=== PATIENT | female | born 1960 | race Caucasian/White ===

== ENCOUNTER 2019-10-19 11:43 | Emergency (ER) | payer MEDICARE, SELFPAY ==
[2019-10-19 11:50] VITALS: BP 187/90; PULSE 101; RESP 20; TEMP 37.2; O2SAT 97
[2019-10-19 12:00] VITALS: BP 181/86; PULSE 85; RESP 17; O2SAT 99
--- NOTE | 2019-10-19 12:12 | ED.SKABFB ---
HPI - Skin/Abscess/Foreign Bdy <DELANEY Wong-BC - Last Filed: 10/19/19 12:27> General Chief complaint: Skin/Abscess/Foreign Body Stated complaint: bump on head/ from prev injury/ weird sensations/ Time Seen by Provider: 10/19/19 11:45 Source: patient Mode of arrival: Ambulatory Limitations: no limitations History of Present Illness HPI narrative: The patient is a 58-year-old female injury who does not vaccinated who presents with a chief complaint of ?weird sensation on her head in addition to a ?red bumpy area.She states that this is on the side of her head above her right ear. She complains of generalized fatigue, denies any fevers nausea vomiting or diarrhea. She denies any chest pain or shortness of breath. She is concerned as she has had a head injury in 2006. She denies any visual deficits, but states that she feels tired and slightly woozy at times. She states that she has some red bumps in her scalp. She states that the area is very tingly, with some shooting electric pains. Related Data Home Medications Medication Instructions Recorded Confirmed sumatriptan succinate [Imitrex] 50 mg PRN #0 12/04/16 Previous Rx's Medication Instructions Recorded prednisone 50 mg PO DAILY #5 tab 10/19/19 valacyclovir 1,000 mg PO TID 7 Days #21 tab 10/19/19 Review of Systems <DELANEY Wong-BC - Last Filed: 10/19/19 12:27> Review of Systems Narrative: GENERAL: Denies chills, fatigue, malaise, fever, sweats. HEENT: Denies sinus pain, ear pain, sore throat, difficulty swallowing, dizziness. RESPIRATORY: Denies dyspnea, cough, wheezing, hemoptysis, sputum. CARDIOVASCULAR: Denies chest pain, palpitations, orthopnea, edema, GASTROINTESTINAL: Denies nausea, vomiting, abdominal pain, diarrhea, constipation, melena. : Denies dysuria, frequency, incontinence, hematuria, urinary retention. MUSCULOSKELETAL: denies weakness, joint pain, or bony pain Skin: See HPI NEUROLOGIC: Denies weakness, headache, numbness, change in speech, confusion, seizures, incoordination. PSYCHIATRIC: No concerning psychosocial issues. 12 point review of systems is negative except for those stated above Patient History <MICAELA Wong - Last Filed: 10/19/19 12:27> Medical History (Updated 10/19/19 @ 12:24 by MICAELA Wong) History of head injury (Acute) Family History Grandmother Cancer Sister Hypertension Hyperlipidemia Social History Smoking Status: Current every day smoker tobacco type: cigarettes alcohol intake frequency: a few times a month Substance Use Type: does not use Exam <MICAELA Wong - Last Filed: 10/19/19 12:27> Narrative Exam Narrative: GENERAL: This is a well-nourished, well-developed patient, in no acute distress HEAD: Atraumatic. Normocephalic. No temporal or scalp tenderness. EYES: Pupils equal round and reactive. Extraocular motions intact. No scleral icterus. No injection or drainage. ENT: Nose without bleeding, purulent drainage or septal hematoma. Throat without erythema, tonsillar hypertrophy or exudate. Uvula midline. Airway patent. NECK: Trachea midline. No JVD or lymphadenopathy. Supple, nontender, no meningeal signs. CARDIOVASCULAR: Regular rate and rhythm RESPIRATORY: No cough. No increased respiratory effort. No accessory muscle use. EXTREMITIES: No clubbing, cyanosis, or edema. No joint tenderness, effusion, or edema noted. BACK: Nontender without deformity or crepitance. No flank tenderness. NEURO: AOx3. SKIN: Approximately 4 x 6 cm area of vesicular crusting lesions superior to her right ear. Slightly erythematous. No drainage. entirely within here, no rash or lesions near eye Initial Vital Signs Initial Vital Signs: Vital Signs Temperature 99.0 F 10/19/19 11:50 Pulse Rate 101 H 10/19/19 11:50 Respiratory Rate 20 10/19/19 11:50 Blood Pressure 187/90 H 10/19/19 11:50 Pulse Oximetry 97 10/19/19 11:50 <Costa Fgiueroa DO - Last Filed: 10/19/19 13:01> Initial Vital Signs Initial Vital Signs: Vital Signs Temperature 99.0 F 10/19/19 11:50 Pulse Rate 101 H 10/19/19 11:50 Respiratory Rate 20 10/19/19 11:50 Blood Pressure 187/90 H 10/19/19 11:50 Pulse Oximetry 97 10/19/19 11:50 Course <DELANEY Wong-BC - Last Filed: 10/19/19 12:27> Vital Signs Vital signs: Vital Signs - 8 hr 10/19/19 11:50 10/19/19 12:00 10/19/19 12:25 Temperature 99.0 F Pulse Rate 101 H 85 85 Respiratory Rate 20 17 18 Blood Pressure 187/90 H 181/86 H Blood Pressure [Right Arm] 181/86 H Pulse Oximetry 97 99 96 <Costa Figueroa DO - Last Filed: 10/19/19 13:01> Vital Signs Vital signs: Vital Signs - 8 hr 10/19/19 11:50 10/19/19 12:00 10/19/19 12:25 Temperature 99.0 F Pulse Rate 101 H 85 85 Respiratory Rate 20 17 18 Blood Pressure 187/90 H 181/86 H Blood Pressure [Right Arm] 181/86 H Pulse Oximetry 97 99 96 MDM - Skin/Abscess/Foreign Bdy <DELANEY Wong-BC - Last Filed: 10/19/19 12:27> MDM Narrative Medical decision making narrative: The patient is a 58-year-old female who presents with a chief complaint of bumps and ?weird sensations above her right ear. The patient's exam indicates shingles. This correlates as she has had chickenpox, is unvaccinated. She was started on valacyclovir, and placed her on a burst of prednisone. She states she is comfortable with both these medications. She has no evidence of lesions your her eye, no rash around her eye and no ocular complaints. I discussed at length that this occurs she needs to follow up promptly. Encouraged follow-up with primary care provider in the next few days well as coming back the emergency department for any acute concerns such as chest pain shortness of breath etc. Discharge Plan Departure Patient Disposition: Home Clinical Impression: Shingles Qualifiers: Herpes zoster complications: without complications Qualified Code(s): B02.9 - Zoster without complications Discharge Date/Time: 10/19/19 12:25 Instructions: Shingles (Herpes Zoster) (Alternative Therapy), DI for Shingles Activity Restrictions/Additional Instructions: Your pain appears to be from shingles. I have sent prescriptions of valacyclovir, antivirals and prednisone to [facility]. I encouraged rest, vxoh-ehu-yewbxhc medications as needed and able. Please remember that this is very contagious, especially for those have not been vaccinated, or immunocompromised Please follow up with primary care provider. Please come back To the emergency department for any acute concerns. Please remember to be evaluated immediately if you are developed rash near your eye Prescriptions: New valacyclovir 1 gram tablet 1,000 mg PO TID 7 Days Qty: 21 RF: 0 prednisone 50 mg tablet 50 mg PO DAILY Qty: 5 RF: 0 No Action sumatriptan succinate [Imitrex] 50 MG tablet 50 mg PRNQty: 0 RF: 0 Referrals: Sarai Altman DO [Primary Care Provider] - <Costa Figueroa DO - Last Filed: 10/19/19 13:01> Sign Out Provider Sign Out Attestation: Dr Figueroa Co-Sign Statement: I was available for consultation during this patient's emergency department visit. This chart is signed by myself for administrative purposes only. I did not have direct contact with this patient during this visit. They were seen independently by the APC.
[2019-10-19 12:25] VITALS: BP 181/86; PULSE 85; RESP 18; O2SAT 96
== END 2019-10-19 12:25 | disposition home or self-care (01) ==
PROVIDERS: Emergency Provider Nurse Practitioner Family; Family Provider Family Medicine; PCP Family Medicine
DX: B02.9 Zoster without complications (principal)
CPT/HCPCS: 99282; 99283

== ENCOUNTER 2020-03-04 00:32 | Emergency (ER) | payer OTHER, SELFPAY ==
[2020-03-04 00:35] VITALS: BP 174/77; PULSE 98; RESP 20; TEMP 36.4; O2SAT 98; BMI 35.2
--- NOTE | 2020-03-04 00:45 | ED_ITS ---
HPI - General Adult General Chief complaint: Fall Stated complaint: FELL DOWN STAIRS Time Seen by Provider: 03/04/20 00:37 History of Present Illness HPI narrative: 59-year-old woman with a history of traumatic brain injury, migraine headaches and alcohol use presents after falling down some stairs this evening. Apparently she and her friend/caregiver were outside watching the [place] and stars align. At some point she stumbled over 3 stairs and landed on her left elbow. She has a minor abrasion on her right elbow. She thinks that she passed out however her caregiver states that she clearly did not lose consciousness and did not hit her head. Related Data Previous Rx's Medication Instructions Recorded prednisone 50 mg PO DAILY #5 tab 10/19/19 adjuvant AS01B (PF)vial 1 of 2 0.5 ml IM ONCE #0.5 ml 01/08/20 Allergies Allergy/AdvReac Type Severity Reaction Status Date / Time No Known Drug Allergies Allergy Verified 03/04/20 00:40 Review of Systems Review of Systems Narrative: Patient is intoxicated so review of systems is limited however she states that she has stopped taking any of her migraine medication and complains only of left elbow pain Patient History Medical History (Updated 03/04/20 @ 01:22 by Emi Molina MD) History of head injury (Acute) Migraine (Acute) Family History Grandmother Cancer Sister Hypertension Hyperlipidemia Social History Smoking Status: Current every day smoker Smoking Status: Current every day smoker tobacco type: cigarettes alcohol intake frequency: a few times a month Substance Use Type: does not use Exam Narrative Exam Narrative: General: Healthy appearing, mildly slurred speech and slightly intoxicated with perseverating questions and vociferous complaints about her left elbow HEENT: Moist mucous membranes, normal sclera with reactive pupils, no abrasions or contusions to the face forehead scalp Neck: supple, no occipital insertion tenderness no midline tenderness to palpation Respiratory: Lungs are clear to auscultation, no wheezing no rales no rhonchi. Full and symmetrical air movement Cardiac: Regular rate and rhythm no murmurs no bruits Abdomen: Soft nontender good bowel tones, no flank pain Skin: Warm and dry, no rashes Neurologic: Slightly some slurred speech consistent with mild intoxication, left upper extremity is neurovascularly intact, no focal neurologic abnormali ties Extremities: well perfused, right elbow with minor abrasion. Left the elbow with contusion were significant abrasion but no sutures needed and full range of motion at the elbow Psych: Cooperative, traumatic affective behavior Initial Vital Signs Initial Vital Signs: Vital Signs Temperature 97.6 F 03/04/20 00:35 Pulse Rate 98 H 03/04/20 00:35 Respiratory Rate 20 03/04/20 00:35 Blood Pressure 174/77 H 03/04/20 00:35 Pulse Oximetry 98 03/04/20 00:35 Course Orders Ordered: ED Orders 03/04/20 00:45 XR elbow LT min 3V Stat Discontinued Medications Ibuprofen (Advil) 400 mg PO NOW ONE Stop: 03/04/20 00:46 Last Admin: 03/04/20 00:51 Dose: 400 mg Documented by: MANOLO Oxycodone/Acetaminophen (Endocet 5/325 Prepack) 1 bottle MISC SEEINSTR ONE Stop: 03/04/20 00:46 Last Admin: 03/04/20 00:54 Dose: Not Given Documented by: MANOLO Oxycodone/Acetaminophen (Percocet 5/325) 1 tab PO NOW ONE Stop: 03/04/20 00:53 Last Admin: 03/04/20 00:54 Dose: 1 tab Documented by: MANOLO Vital Signs Vital signs: Vital Signs - 8 hr 03/04/20 00:35 03/04/20 00:55 03/04/20 01:19 Temperature 97.6 F Pulse Rate 98 H 98 H 85 Respiratory Rate 20 16 16 Blood Pressure 174/77 H Blood Pressure [Right Arm] 160/64 H 158/80 H Pulse Oximetry 98 99 98 Medical Decision Making Medical Records Medical records reviewed: Yes I reviewed the patient's medical records. Imaging Data Left Elbow xray: Attestation: I personally reviewed and interpreted this imaging study as follows: My Impression: No fracture, small effusion over the olecranon MDM Narrative Medical decision making narrative: Mechanical fall compounded by mild alcohol intoxication with contusion to the left elbow no fractures Discharge Plan Departure Patient Disposition: Home Clinical Impression: Fall Qualifiers: Encounter type: initial encounter Qualified Code(s): W19.XXXA - Unspecified fall, initial encounter Contusion of elbow Qualifiers: Encounter type: initial encounter Laterality: left Qualified Code(s): S50.02XA - Contusion of left elbow, initial encounter Abrasion of elbow Qualifiers: Encounter type: initial encounter Laterality: left Qualified Code(s): S50.312A - Abrasion of left elbow, initial encounter Alcohol intoxication Qualifiers: Complication of substance-induced condition: uncomplicated Qualified Code(s): F10.920 - Alcohol use, unspecified with intoxication, uncomplicated Instructions: DI for Elbow Pain Activity Restrictions/Additional Instructions: Thank you for coming in this evening I am sorry that your stumble interrupted your star gazing this evening. Fortunately you did not break your elbow. The abrasion over the elbow should heal nicely. As with any fall, you will hurt more tomorrow than you do now. Making sure that you are staying active actually helps and using 400 mg of ibuprofen (2 bnar-bqu-[id number] pills) and 1 Tylenol every 6 hours can be very helpful in controlling pain. I wish you the best Prescriptions: No Action Shingrix Adjuvant Component-PF Suspension 0.5 ml IM ONCE Qty: 0.5 RF: 0 prednisone 50 mg tablet 50 mg PO DAILY Qty: 5 RF: 0
--- NOTE | 2020-03-04 00:45 | DI.RAD.S_ITS ---
PROCEDURE: XR ELBOW LT MIN 3V INDICATIONS: fall TECHNIQUE: 3 views of the elbow were acquired. COMPARISON: None. FINDINGS: Bones: No fractures or dislocations. No suspicious bony lesions. Soft tissues: No elbow joint effusion. No suspicious soft tissue calcifications. IMPRESSION: No trauma found. Dictated by: Wallace Meyers M.D. on 03/04/2020 at 8:06 Approved by: Wallace Meyers M.D. on 03/04/2020 at 8:07
[2020-03-04] MEDS: IBUPROFEN 400 MG TABLET PO (00:51)
[2020-03-04] MEDS: OXYCODONE/ACETAMINOPHEN 5/325 TABLET 1 TAB PO (00:54)
[2020-03-04 00:55] VITALS: BP 160/64; PULSE 98; RESP 16; O2SAT 99
--- NOTE | 2020-03-04 00:59 | PC.NURSE ---
Upon arrival,pt able to get self out of car & into without assistance.Gait steady from wc to stretcher. Pt denies head,neck or back pain.No point tenderness to cervical vertebtrae.SO states pt did not lose consciousness at any time before or after fall. CMS good to all extremities, though c/o increase pain to left forearm with flexion/extension of arm..Nailbeds pink with brisk cap refill. ETOH noted on pt's breath,pt admits to having 1 1/2 drinks tonight prior to the fall. Pt is stable,no acute distress.No tenderness,abrasions,bruise, swelling,discoloration noted to scalp/head.Pt does have swelling to mid left forearm which she states has had a sebaceous cyst there for quite some time. Admits this is tender to palpation.No other complaints voiced at time of admission.
[2020-03-04 01:19] VITALS: BP 158/80; PULSE 85; RESP 16; O2SAT 98
== END 2020-03-04 01:27 | disposition home or self-care (01) ==
PROVIDERS: Emergency Provider Emergency Medicine
DX: S50.02XA Contusion of left elbow, initial encounter (principal); S50.312A Abrasion of left elbow, initial encounter; F10.920 Alcohol use, unspecified with intoxication, uncomplicated; W10.9XXA Fall (on) (from) unspecified stairs and steps, initial encounter
CPT/HCPCS: 73080; 99283; 99284

== ENCOUNTER 2021-06-20 18:57 | Emergency (ER) | payer OTHER, SELFPAY ==
[2021-06-20 19:05] VITALS: BP 145/81; PULSE 88; RESP 22; TEMP 36.7; O2SAT 97
--- NOTE | 2021-06-20 19:10 | DI.RAD.S_ITS ---
PROCEDURE: XR FOREARM LT 2V INDICATIONS: fall, lt forearm swelling TECHNIQUE: 2 views of the forearm were acquired. COMPARISON: None. FINDINGS: Bones: No fractures or dislocations. No suspicious bony lesions. Soft tissues: No suspicious soft tissue calcifications or masses. Focal soft tissue swelling noted in the anterior aspect of midforearm. IMPRESSION: No fracture. No osseous lesion. If symptoms and/or clinical suspicion for pathology persists, further assessment with repeat radiographs (7-10 days) or advanced imaging (e.g. CT, MRI or bone scan) should be considered. Dictated by: Kassy Allison MD, PhD on 06/20/2021 at 19:33 Approved by: Kassy Allison MD, PhD on 06/20/2021 at 19:34
--- NOTE | 2021-06-20 20:52 | ED.GENADULT ---
HPI - General Adult General Chief complaint: Extremity Injury, Upper Stated complaint: fell and hit arm/lump forming Time Seen by Provider: 06/20/21 20:35 Source: patient Mode of arrival: Wheelchair History of Present Illness HPI narrative: Patient is a 60-year-old female here for evaluation of injuries to her left arm that she sustained after she tripped and fell earlier today. Initially was reported that she was having swelling to her left arm however the patient states that the swelling that is there is actually a cyst that she has known about for several years. She does have some abrasions over the back of her left wrist. There were no other injuries reported from the event. Related Data Previous Rx's Medication Instructions Recorded prednisone 50 mg tablet 50 mg PO DAILY #5 tab 10/19/19 adjuvant AS01B (PF)vial 1 of 2 0.5 ml IM ONCE #0.5 ml 01/08/20 (Shingrix Adjuvant Component-PF) Allergies Allergy/AdvReac Type Severity Reaction Status Date / Time No Known Drug Allergies Allergy Verified 03/04/20 00:40 Review of Systems Musculoskeletal Musculoskeletal: Reports as per HPI Integumentary/Breasts Skin/Breast: Reports as per HPI Neurologic Neurologic: Reports system reviewed and no additional complaints, except as documented Hematologic/Lymphatic On Anticoagulants: No Patient History Medical History History of head injury Migraine Family History Grandmother Cancer Sister Hypertension Hyperlipidemia Social History Smoking Status: Current every day smoker Smoking Status: Current every day smoker tobacco type: cigarettes alcohol intake frequency: a few times a month Alcohol type: beer Substance Use Type: does not use Exam Initial Vital Signs Initial Vital Signs: Vital Signs Temperature 98.1 F 06/20/21 19:05 Pulse Rate 88 06/20/21 19:05 Respiratory Rate 22 06/20/21 19:05 Blood Pressure 145/81 H 06/20/21 19:05 Pulse Oximetry 97 06/20/21 19:05 HENMT Head: normal to inspection and normocephalic Cardio Pulses: radial pulses present on the left Skin Other: Superficial abrasion on the dorsum left wrist. No active bleeding. Neuro General: patient alert, patient awake and moves all extremities Extrem Other: Left shoulder left elbow left wrist unremarkable. Patient does have a soft swelling on the radial aspect of the distal 3rd of her left forearm. She states that this is the cyst that she has known about. Psych Appearance: grossly normal and well kempt Course Orders Ordered: ED Orders 06/20/21 19:10 XR forearm LT 2V Stat Vital Signs Vital signs: Vital Signs - 8 hr 06/20/21 20:59 Pulse Rate 80 Respiratory Rate 16 Blood Pressure 139/66 Pulse Oximetry 97 Medical Decision Making Imaging Data Extremity x-ray #1: Radiologist's Impression: [address] [id number] ReportSigned Patient: Milly Thomas MMR#: [id number]: 9Acct:[id number]/Sex: 60 / FDate of Service: 06/20/21Loc: EDAccession Number: [id number] Procedure: XR forearm LT 2V Ordering Provider: Costa Figueroa D.O. PROCEDURE: XR FOREARM LT 2V INDICATIONS: fall, lt forearm swelling TECHNIQUE: 2 views of the forearm were acquired. COMPARISON: None. FINDINGS: Bones: No fractures or dislocations. No suspicious bony lesions. Soft tissues: No suspicious soft tissue calcifications or masses. Focal soft tissue swelling noted in the anterior aspect of midforearm. IMPRESSION: No fracture. No osseous lesion. If symptoms and/or clinical suspicion for pathology persists, further assessment with repeat radiographs (7-10 days) or advanced imaging (e.g. CT, MRI or bone scan) should be considered. Dictated by: Kassy Allison MD, PhD on 06/20/2021 at 19:33 Approved by: Kassy Allison MD, PhD on 06/20/2021 at 19:34 [facility] Narrative Medical decision making narrative: Patient is obviously intoxicated. The fall happened earlier today. The paramedics did have to come out and pick her up. She is here with a friend. Apparently the swelling that they were concerned about on the left wrist is a cyst that the patient has known about for several years now. The x-ray shows no signs of fracture. The abrasion needs no intervention. There are no other injuries found on the exam nor reported from the patient. We will hold on further workup for now. She is given return precautions and follow-up instructions. She expressed understanding and agreement. Discharge Plan Departure Patient Disposition: Home Clinical Impression: Arm pain, left Activity Restrictions/Additional Instructions: There were no fractures noted on the x-rays. Do recommend that you ice the area and please return to the emergency department for any new or worsening symptoms Prescriptions: No Action Shingrix Adjuvant Component-PF Suspension 0.5 ml IM ONCE Qty: 0.5 RF: 0 prednisone 50 mg tablet 50 mg PO DAILY Qty: 5 RF: 0 Referrals: Elva Quezada ARNP [Primary Care Provider] -
[2021-06-20 20:59] VITALS: BP 139/66; PULSE 80; RESP 16; O2SAT 97
== END 2021-06-20 21:00 | disposition home or self-care (01) ==
PROVIDERS: Emergency Provider Emergency Medicine; PCP Nurse Practitioner Family
DX: M79.602 Pain in left arm (principal); W19.XXXA Unspecified fall, initial encounter
CPT/HCPCS: 73090; 99283

== ENCOUNTER → 2022-01-08 10:03 | Outpatient (CLI) | payer OTHER, SELFPAY ==
[2022-01-08 10:59] LABS: COVID19 -Nasal RAPID Negative (Negative)
== END ==
PROVIDERS: PCP Internal Medicine; Visit Provider Surgery
DX: Z20.822 Contact with and (suspected) exposure to COVID-19 (principal)
CPT/HCPCS: 87635; C9803

== ENCOUNTER 2022-01-09 09:39 | Day surgery (SDC) | payer OTHER, SELFPAY ==
[2022-01-09 09:53] VITALS: BMI 30.8
[2022-01-09 10:07] VITALS: BP 150/71; PULSE 96; RESP 18; TEMP 36.7; O2SAT 99
--- NOTE | 2022-01-09 12:44 | SUR.PREOP ---
Pt surgery cancelled due to Humidifier problem in the O.R.
== END 2022-01-09 09:40 | disposition home or self-care (01) ==
LOC: OR 09:40
PROVIDERS: Referring Provider Surgery; Visit Provider Surgery
DX: D17.22 Benign lipomatous neoplasm of skin and subcutaneous tissue of left arm (principal); Z53.09 Procedure and treatment not carried out because of other contraindication
CPT/HCPCS: 17000; J2250; J2405; J2704; J3010

== ENCOUNTER → 2022-01-11 14:20 | Outpatient (CLI) | payer OTHER, SELFPAY ==
[2022-01-11 15:06] LABS: COVID19 -Nasal RAPID Negative (Negative)
== END ==
PROVIDERS: PCP Internal Medicine; Visit Provider Surgery
DX: Z01.812 Encounter for preprocedural laboratory examination (principal); Z20.822 Contact with and (suspected) exposure to COVID-19
CPT/HCPCS: 87635; C9803

== ENCOUNTER 2022-01-12 13:31 | Day surgery (SDC) | payer OTHER, SELFPAY ==
[2022-01-10 10:07] VITALS: BMI 32.8
--- NOTE | 2022-01-12 | PATH_ITS ---
[facility] Accession Number: [id number] . 01 Material submitted: . arm - LEFT ARM LIPOMA . 01 Diagnosis: Soft Tissue, Left Arm, Excision: Lipoma. [facility] 01/16/2022 1613 Local . 01 Electronically signed: . Ryann Morris MD, Pathologist NPI- [id number] . 01 Gross description: . Received in formalin, labeled with the patient's name and additionally labeled lipoma left arm, is a circular portion of yellow lobulated adipose tissue measuring 6.0 x 5.5 x 2.1 cm. The unoriented specimen is entirely inked blue. The specimen is sectioned revealing yellow lobulated cut surfaces with no discrete lesions, fibrous bands or areas of necrosis identified. Senior [employer] Engineer sections are submitted in cassettes A1 and A2. ([id number]) /MRV 01/15/2022 1346 Local . 01 Pathologist provided ICD-10: D17.22 . 01 CPT . 886449 Specimen Comment: A courtesy copy of this report has been sent to [phone] Performed at: [address] [facility] [address] [place] [address] [id number] MD Oren Perez MD Phone: [phone]
[2022-01-12 14:41] VITALS: BP 139/75; PULSE 93; RESP 16; TEMP 36.8; O2SAT 97; BMI 32.8
--- NOTE | 2022-01-12 16:48 | PM.HP.1 ---
History of Present Illness History of Present Illness Date Patient Seen: 01/12/22 Time Patient Seen: 16:48 Chief complaint: SDC Narrative: 61-year-old woman with a left arm soft tissue mass most likely lipoma. It has been there for few years but it is getting larger. It is starting to bother her. Patient History Medical History (Updated 01/11/22 @ 14:48 by JOSE MARIA Gayle) History of head injury (2006) Lipoma Migraine Family & Social History Family History Grandmother Cancer Sister Hypertension Hyperlipidemia Social History: household members friend(s) Tobacco & Substance use: Tobacco type cigarettes Smoking Status Current every day smoker alcohol intake current alcohol intake frequency a few times a month Substance Use Type does not use Meds Home Medications and Allergies Home Medications Medication Instructions Recorded Confirmed Type adjuvant AS01B (PF)vial 1 of 2 0.5 ml IM ONCE #0.5 ml 01/08/20 01/11/22 Rx (Shingrix Adjuvant Component-PF) miscellaneous medical supply #1 ea 01/11/22 01/11/22 Rx Allergies Allergy/AdvReac Type Severity Reaction Status Date / Time No Known Drug Allergies Allergy Verified 01/11/22 13:34 Exam Vital Signs (past 8 hours): - 01/12/22 14:41 Temperature 98.2 F Pulse Rate 93 H Respiratory Rate 16 Blood Pressure 139/75 Pulse Oximetry 97 Oxygen Delivery Method Room Air Narrative Exam Narrative: 8 x 6 cm soft mobile mass over the left radius most likely a lipoma. Assessment & Plan Assessment and plan (1) Neoplasm of unspecified behavior of bone, soft tissue, and skin: Status: Acute Plan Plan to proceed with excisional biopsy of left arm soft tissue mass. She understands the risks including nerve injury and she would like to proceed. COVID-19 COVID-19 status: Negative Result date/Date tested (Pos, Neg/Pending): 01/11/22 Time Spent With Patient Critical Care time: I spent a total of [] minutes of critical care time on this patient's care today; this time is exclusive of procedural time.
--- NOTE | 2022-01-12 17:42 | SUR.OPER ---
Supine on padded OR bed, head on pillow, arms secured on padded arm boards at <90 degrees abduction, legs uncrossed, safety belt at thigh, tape over blanket over lower legs.
[2022-01-12] MEDS: EPINEPHrine 1 MG/ML 0.2 MG INJ (18:02)
[2022-01-12] MEDS: LACTATED RINGERS 1,000 ML 42 ML IV (18:03)
[2022-01-12 18:21] VITALS: BP 127/58; PULSE 97; RESP 24; TEMP 36; O2SAT 98
--- NOTE | 2022-01-12 18:25 | SUR.PHASEI ---
Patient received from OR in stable condition with OR nurse and anesthesia at bedside. Awake but drowsy; denies any pain; dressing to right forearm clean, dry and intact. Denies numbness or tingling; capillary refill less than three seconds.
[2022-01-12 18:26] VITALS: BP 125/69; PULSE 94; RESP 25; O2SAT 98
--- NOTE | 2022-01-12 18:30 | PM.OP.1 ---
Operative Date/Time/Diagnoses Date of procedure: 01/12/22 Time of procedure: 18:30 Pre-op diagnosis: Left arm lipoma Post-op diagnosis: same Procedure & Clinicians Procedure: Excisional biopsy of left arm lipoma Same procedure as scheduled: Yes Indications: Left arm lipoma Surgeon: Jaison Chavarria Anesthesia Type: General Operative Notes Estimated Blood Loss (mL): 10 Procedure in detail: The patient was brought to the operating room and placed on the table in the supine position.? No antibiotics were indicated.? General anesthesia was induced with LMA.? The left arm was placed on an arm board and prepped and draped in the usual fashion.? A 7 cm incision was made over the mass in a longitudinal direction.? We divided down through a thin layer of subcutaneous adipose tissue to expose the mass.? There were 2 thin peripheral nerves running along the lipoma which were carefully dissected free and left intact.? There were 2 veins that were rather invested in the lipoma which were tied off and divided.? There was a well defined plane along the deep aspect of the lipoma which extended down to the fascia.? The edge of the radius was visible a few layers below the mass.? The deeper compartment was not entered.? Few bleeders were cauterized.? The wound was then closed in layers using interrupted 3-0 Vicryl dermal sutures followed by running 4-0 Monocryl subcuticular stitch.? Steri-Strips were applied followed by 4x4s and an Sen wrap.? The patient was awakened.? She had full motor function at the conclusion of the case. EBL 10 mL Post-operative Condition: stable Disposition: PACU
[2022-01-12 18:31] VITALS: BP 116/55; PULSE 93; RESP 16; O2SAT 97
--- NOTE | 2022-01-12 18:32 | PM.OP.1 ---
Operative Date/Time/Diagnoses Date of procedure: 01/12/22 Time of procedure: 18:33 Procedure & Clinicians Procedure: Excisional biopsy left arm lipoma Same procedure as scheduled: Yes Surgeon: Jaison Chavarria Operative Notes Procedure in detail: The patient was brought to the operating room and placed on the table in the supine position.? No antibiotics were indicated.? General anesthesia was induced with LMA.? The left arm was placed on an arm board and prepped and draped in the usual fashion.? A 7 cm incision was made over the mass in a longitudinal direction.? We divided down through a thin layer of subcutaneous adipose tissue to expose the mass.? There were 2 thin peripheral nerves running along the lipoma which were carefully dissected free and left intact.? There were 2 veins that were rather invested in the lipoma which were tied off and divided.? There was a well defined plane along the deep aspect of the lipoma which extended down to the fascia.? The edge of the radius was visible a few layers below the mass.? The deeper compartment was not entered.? Few bleeders were cauterized.? The wound was then closed in layers using interrupted 3-0 Vicryl dermal sutures followed by running 4-0 Monocryl subcuticular stitch.? Steri-Strips were applied followed by 4x4s and an Sen wrap.? The patient was awakened.? She had full motor function at the conclusion of the case. EBL 10 mL Post-operative Condition: stable Disposition: PACU
[2022-01-12 18:36] VITALS: BP 138/63; PULSE 85; RESP 16; TEMP 36.7; O2SAT 98
== END 2022-01-12 18:55 | disposition home or self-care (01) ==
PROVIDERS: PCP Internal Medicine; Referring Provider Surgery; Visit Provider Surgery
PROC: (CPT 25071; principal; 2022-01-12 14:45)
DX: D17.22 Benign lipomatous neoplasm of skin and subcutaneous tissue of left arm (principal)
CPT/HCPCS: 25071; J0171

== ENCOUNTER 2024-12-18 15:25 | Emergency (ER) | payer OTHER, SELFPAY ==
[2024-12-18 15:32] VITALS: BP 166/76; PULSE 78; RESP 16; TEMP 36.2; O2SAT 97; BMI 22.1
--- NOTE | 2024-12-18 16:20 | ED_ITS ---
<Statement entered by Danilo Burk, - 12/19/24 07:08> Dr. Burk: I was immediately available in the department for consultation. I did not actually see the patient. HPI - Nausea/Vomiting/Diarrhea General Chief complaint: Nausea/Vomiting/Diarrhea Stated complaint: WIC; Diarrhea t-5, Weakness, Can't Walk Alone Time Seen by Provider: 12/18/24 16:20 History of Present Illness HPI Narrative: Ms. Thomas is a pleasant 64-year-old female with a past medical history of cholecystectomy, daily smoker presents to the emergency department for diarrhea and generalized weakness x5 days. Patient reports she was having frequent loose stool 5 days ago however since then she has had improvement with 1 normal brown solid stool today. However she has been eating and drinking less and feels very dehydrated and weak because of the diarrhea. She attempted to go to the walk-in clinic but because she was having difficulty walking on her own she was directed to the emergency department. At this time she denies any pain including chest pain, abdominal pain, nausea, vomiting, headache, dizziness, confusion, lightheadedness, dysuria, hematuria, cough, shortness of breath, dyspnea on exertion. She has taken no medications prior to arrival. She lives with 2 friends at home. Related Data Previous Rx's Medication Instructions Recorded nitrofurantoin macrocrystal 100 mg 100 mg PO BID 5 days #10 caps 12/18/24 capsule Allergies Allergy/AdvReac Type Severity Reaction Status Date / Time No Known Drug Allergies Allergy Verified 02/26/22 16:32 Review of Systems Review of Systems ROS Unobtainable: All systems reviewed & are unremarkable except as noted in HPI and below Patient History Medical History Smoker unmotivated to quit Closed head injury (~2006) Chronic intermittent post-traumatic headache Chronic migraine Lipoma Migraine Surgical History H/O breast biopsy Family History Grandmother Cancer Sister Hypertension Hyperlipidemia Social History household members: friend(s) Smoking Status: Current every day smoker alcohol intake: current Smoking Status: Current every day smoker tobacco type: cigarettes alcohol intake frequency: a few times a month Alcohol type: beer Exam Narrative Exam Narrative: GENERAL: 64 year old patient appears stated age. Frail elderly patient, in no acute distress. HEAD: Atraumatic. Normocephalic. EYES: Extraocular motions intact. No scleral icterus. No injection or drainage. NECK: Trachea midline. Cervical ROM intact. CARDIOVASCULAR: Regular rate and rhythm. RESPIRATORY: ?Nonlabored respirations. ?Speaking in clear, full sentences. ?Clear to auscultation. Breath sounds equal bilaterally. No wheezes, rales, or rhonchi. ? GASTROINTESTINAL: Abdomen soft, non-tender, nondistended. EXTREMITIES: No edema or joint tenderness. BACK: No flank tenderness. NEURO: AOx3. ?Clear speech. ?Moves all 4 extremities appropriately. Slow to sit/stand independently. SKIN: No rash or erythema of visible areas Initial Vital Signs Initial Vital Signs: Vital Signs Temperature 97.1 F L 12/18/24 15:32 Pulse Rate 78 12/18/24 15:32 Respiratory Rate 16 12/18/24 15:32 Blood Pressure 166/76 H 12/18/24 15:32 Pulse Oximetry 97 12/18/24 15:32 Oxygen Delivery Method Room Air 12/18/24 15:32 Course Orders Ordered: ED Orders 12/18/24 15:40 EKG-12 Lead Stat 12/18/24 16:00 Complete Blood Count AUTO DIFF Stat Comprehensive Metabolic Panel Stat Lipase Stat 12/18/24 16:28 XR chest 1V Stat 12/18/24 17:05 Covid-19 + FLU A/B + RSV - PCR Stat 12/18/24 18:00 Urinalysis and Microscopic Stat Urine Culture Stat Discontinued Medications Sodium Chloride (Normal Saline 0.9%) 1,000 mls @ 1,000 mls/hr IV BOLUS ONE Stop: 12/18/24 17:27 Last Infusion: 12/18/24 18:11 Dose: Infused Documented By: Admin: 12/18/24 17:01 Dose: 1,000 mls/hr Documented By: PAULA Ondansetron HCl (Ondansetron 4 Mg/2 Ml Inj) 4 mg IV NOW PRN PRN Reason: Nausea And Vomiting Ondansetron HCl (Ondansetron 4 Mg Odt) 4 mg PO NOW PRN PRN Reason: Nausea And Vomiting Vital Signs Vital signs: Vital Signs - 8 hr 12/18/24 15:32 12/18/24 19:42 Temperature 97.1 F L 97.9 F Pulse Rate 78 79 Respiratory Rate 16 16 Blood Pressure 166/76 H 129/75 Pulse Oximetry 97 98 Oxygen Delivery Method Room Air Room Air MDM - Nausea/Vomiting/Diarrhea Medical Records Attestation: I reviewed the patient's medical records. Lab Data 12/18/24 16:00 12/18/24 16:00 Labs: Lab Results 12/18/24 12/18/24 12/18/24 Range/Units 16:00 17:05 18:00 WBC 5.3 (4.5-11.0) X10^3/uL RBC 5.25 H (4.0-5.2) X10^6/uL Hgb 14.1 (12.0-16.0) g/dL Hct 42.6 (36-46) % MCV 81.2 (80-100) fL MCH 26.8 (26-34) PG MCHC 33.0 (30-36) % RDW 12.6 (11.6-14.8) % Plt Count 147 L (150-400) X10^3/uL Neut % (Auto) 69.0 (50-75) % Lymph % (Auto) 22.8 L (25-40) % [place] % (Auto) 6.7 (3-14) % Eos % (Auto) 0.7 L (2-4) % Baso % (Auto) 0.8 (0-2) % Neut # (Auto) 3700 (8487-0596) /uL Lymph # (Auto) 1200 (3099-4482) /uL [place] # (Auto) 400 (0-900) /uL Eos # (Auto) 0 (0-450) /uL Baso # (Auto) 0 (0-100) /uL Sodium 137 (137-145) mmol/L Potassium 4.0 (3.4-5.1) mmol/L Chloride 103 (98-107) mmol/L Carbon Dioxide 24 (22-32) mmol/L BUN 26 H (7-17) mg/dL Creatinine 0.86 (0.52-1.04) mg/dL Estimated GFR > 60 (>60) mL/min BUN/Creatinine Ratio 30.2 H (6-22) Glucose 108 (80-110) mg/dL Calcium 9.1 (8.4-10.2) mg/dL Total Bilirubin 0.4 (0.2-1.3) mg/dL AST 35 (14-36) IU/L ALT 41 H (<35) IU/L Alkaline Phosphatase 132 H (38-126) U/L Total Protein 8.0 (6.3-8.2) g/dL Albumin 4.5 (3.5-5.0) g/dL Globulin 3.5 (1.7-4.1) g/dL Albumin/Globulin Ratio 1.3 (1.0-2.8) Lipase 175 (23-300) U/L Urine Color Yellow Urine Appearance Cloudy Urine pH 5.0 (4.5-8.0) Ur Specific Salol >=1.030 H (1.000-1.035) Urine Protein Trace H (Negative) Urine Glucose (UA) Negative (Negative) g/dL Urine Ketones Trace H (NEGATIVE) Urine Occult Blood Negative (Negative) Urine Nitrate Positive H (Negative) Urine Bilirubin Negative (NEGATIVE) Urine Urobilinogen 0.2 (0.2) E.U./dL Ur Leukocyte Esterase Trace H (NEGATIVE) Urine RBC None seen (0-5/HPF) Urine WBC 1-5/hpf (0-5/HPF) Ur Squamous Epith Cells 5-10 /hpf H (0-5/HPF) Urine Bacteria Many (>30) H (None) Ur Culture Indicated? Specimen cultured Vol Urine Centrifuged 10ml (spun) SARS-CoV-2 (PCR) Positive H (Negative) Influenza A (RT-PCR) Flu a negative (NEGATIVE) Influenza B (RT-PCR) Flu b negative (NEGATIVE) RSV (PCR) Negative (Negative) Imaging Data Chest x-ray: Radiologist's Impression: PROCEDURE: XR CHEST 1V INDICATIONS: weakness TECHNIQUE: One view of the chest was acquired. COMPARISON: [facility], , CHEST 2 VIEW, 12/04/2016, 16:04. FINDINGS: Surgical changes and devices: None. Lungs and pleura: Lungs are clear. No pleural effusions or pneumothorax. Mediastinum: Mediastinal contours appear normal. Heart size is normal. Bones and chest wall: No suspicious bony lesions. Overlying soft tissues appear unremarkable. IMPRESSION: No acute cardiopulmonary abnormality is seen. MDM Narrative Medical decision making narrative: 64-year-old female with a past medical history of cholecystectomy, daily smoker presents to the emergency department for diarrhea and generalized weakness x5 days. Differential diagnosis includes but is not limited to dehydration, ERICH, gastroenteritis, viral syndrome, uti, pneumonia, etc. On exam the patient is in no acute distress, nontoxic appearing, vital signs appropriate except for mildly elevated blood pressure. She does have some generalized weakness difficulties going from sitting to standing, no pain no abdominal tenderness no focal weakness. She is alert and oriented, quite happy and making jokes. We will obtain workup including chest x-ray, urinalysis, viral swab CBC, CMP, GI panel, treat with 1 L IV fluids. Patient feeling much better after her fluids, walking around independently. She is requesting to go home. She did come back positive for COVID. Chest x-ray negative for pneumonia. Normal WBC count 5.3, hemoglobin 14.1 hematocrit 42.6. Her platelets are slightly low at 147 which we discussed. Mildly elevated BUN creatinine ratio consistent with dehydration. UA with many bacteria, 1-5 urine WBCs, trace leuk esterase, nitrate positive. Patient not having dysuria but after shared decision-making would like to start antibiotics, she does not want to dose tonight, they were sent to her pharmacy of choice. Macrobid b.i.d. x5 days prescribed pending urine culture results. Overall patient is feeling much better after IV fluids, walking independently, eagerly requesting discharge home. We discussed her diagnoses of COVID, UTI, dehydration. Recommended rest, hydration, completion of antibiotics, return to the emergency department for any new or worsening symptoms, follow up PCP. Patient verbalized understanding of all information and is agreeable to the plan. She is stable for discharge home, vital signs normal. Discharge Plan Departure Patient Disposition: Home Clinical Impression: COVID, Dehydration, Acute UTI Instructions: DI for Dehydration -- Adult, DI for COVID-19 (Suspected or Confirmed ) Activity Restrictions/Additional Instructions: Dear Ms. Thomas, Thank you for coming to the emergency department. Today you were evaluated for generalized weakness and diarrhea. You were treated with IV fluids. You did test positive for COVID which is an upper respiratory infection that is likely causing many of your symptoms. Your urine test was also positive for signs concerning for urinary tract infection. I have sent antibiotics to your pharmacy for you to start. You will be called in 3 days if your urine culture shows that you need a different antibiotic. Please hydrate, rest, take Tylenol/ibuprofen for pain, complete full course of antibiotics. Return to the emergency department with any concerns. Please follow up with your primary care doctor within the next 2-3 days for ER follow-up. (If you do not have a PCP you can call [phone]. ?to schedule an appointment with an [facility] Primary Care Provider) IF YOU DEVELOP ANY NEW OR WORSENING SYMPTOMS, RETURN TO THE ER! Please read the attached instructions, they highlight more specific treatments and interventions for you at home. Thank you for letting me participate in your care, Christa Galdamez PA-C Prescriptions: New nitrofurantoin macrocrystal 100 mg capsule 100 mg PO BID 5 Days Qty: 10 0RF Rx Instructions: must administer with a meal/food Referrals: Tommy Montana MD [Primary Care Provider] - Stand Alone Forms: Patient Portal/API/Survey
[2024-12-18 16:22] LABS: Alanine Aminotransferase 41 IU/L (<35); Albumin 4.5 g/dL (3.5-5.0); Albumin Globulin Ratio 1.3 (1.0-2.8); Alkaline Phosphatase 132 U/L (38-126); Aspartate Aminotransferase 35 IU/L (14-36); BUN Creatinine Ratio 30.2 (6-22); Bilirubin Total 0.4 mg/dL (0.2-1.3); Blood Urea Nitrogen 26 mg/dL (7-17); Calcium 9.1 mg/dL (8.4-10.2); Carbon Dioxide 24 mmol/L (22-32); Chloride 103 mmol/L (98-107); Estimated Glomerular Filt Rate > 60 mL/min (>60); Globulin 3.5 g/dL (1.7-4.1); Glucose 108 mg/dL (80-110); HEMOLYSIS < 15 (0-50); Lipase 175 U/L (23-300); Sodium 137 mmol/L (137-145)
--- NOTE | 2024-12-18 16:28 | DI.RAD.S_ITS ---
PROCEDURE: XR CHEST 1V INDICATIONS: weakness TECHNIQUE: One view of the chest was acquired. COMPARISON: [facility], , CHEST 2 VIEW, 12/04/2016, 16:04. FINDINGS: Surgical changes and devices: None. Lungs and pleura: Lungs are clear. No pleural effusions or pneumothorax. Mediastinum: Mediastinal contours appear normal. Heart size is normal. Bones and chest wall: No suspicious bony lesions. Overlying soft tissues appear unremarkable. IMPRESSION: No acute cardiopulmonary abnormality is seen. Dictated by: Saúl Gibbs M.D. on 12/18/2024 at 16:55 Approved by: Saúl Gibbs M.D. on 12/18/2024 at 16:55
[2024-12-18 16:32] LABS: Add Manual Diff / Slide Review NO; Basophils Absolute Auto 0 /uL (0-100); Basophils Percent Auto 0.8 % (0-2); Eosinophils Absolute Auto 0 /uL (0-450); Eosinophils Percent Auto 0.7 % (2-4); Hematocrit 42.6 % (36-46); Hemoglobin 14.1 g/dL (12.0-16.0); Lymphocytes Absolute Auto 1200 /uL (1100-4500); Lymphocytes Percent Auto 22.8 % (25-40); Mean Corpuscular Hemoglobin 26.8 PG (26-34); Mean Corpuscular Volume 81.2 fL (80-100); Monocytes Absolute Auto 400 /uL (0-900); Monocytes Percent Auto 6.7 % (3-14); Neutrophils Absolute Auto 3700 /uL (1500-7000); Platelet Count 147 X10^3/uL (150-400); Red Blood Cell Count 5.25 X10^6/uL (4.0-5.2); Red Cell Distribution Width 12.6 % (11.6-14.8); White Blood Cell Count 5.3 X10^3/uL (4.5-11.0)
[2024-12-18] MEDS: SODIUM CHLORIDE 0.9% 1,000 ML 1000 ML IV (17:01)
[2024-12-18 17:50] LABS: Influenza A - CEPHEID Flu A NEGATIVE (NEGATIVE); Influenza B - CEPHEID Flu B NEGATIVE (NEGATIVE); Respiratory Syncytial Virus Negative (Negative)
[2024-12-18 18:10] LABS: COVID-19 CEPHEID 4-PLEX PCR POSITIVE (Negative)
[2024-12-18 18:24] LABS: Appearance Urine UA CLOUDY; Bilirubin Urine UA NEGATIVE (NEGATIVE); Color Urine UA YELLOW; Glucose Urine UA NEGATIVE (Negative); Ketones Urine UA TRACE (NEGATIVE); Leukocyte Esterase Urine UA TRACE (NEGATIVE); Nitrite Urine UA POSITIVE (Negative); Occult Blood Urine UA NEGATIVE (Negative); Protein Urine UA TRACE (Negative); Specific Gravity Urine UA >=1.030 (1.000-1.035); Urobilinogen Urine UA 0.2 E.U./dL (0.2)
[2024-12-18 19:13] LABS: Bacteria Urine Many (>30); Culture Indicated Urine Specimen Cultured; RBC Urine None Seen (0-5/HPF); Squamous Epithelial Cell Urine 5-10 /HPF (0-5/HPF); Urine Volume 10mL (spun); WBC Urine 1-5/HPF (0-5/HPF)
[2024-12-18 19:42] VITALS: BP 129/75; PULSE 79; RESP 16; TEMP 36.6; O2SAT 98
== END 2024-12-18 19:44 | disposition home or self-care (01) ==
PROVIDERS: Student in an Organized Health Care Education/Training Program; Emergency Provider Physician Assistant; PCP Internal Medicine
DX: U07.1 COVID-19 (principal); E86.0 Dehydration; N39.0 Urinary tract infection, site not specified; R19.7 Diarrhea, unspecified; F17.200 Nicotine dependence, unspecified, uncomplicated; B96.1 Klebsiella pneumoniae [K. pneumoniae] as the cause of diseases classified elsewhere; Z16.11 Resistance to penicillins
CPT/HCPCS: 0241U; 71045; 80053; 81001; 83690; 85025; 87077; 87086; 87186; 96360; 96361; 99283; 99284